=== PATIENT | female | born 1965 | race Caucasian/White ===

== ENCOUNTER 2024-03-21 07:23 | Emergency (ER) | payer BC ==
[~2024-03-21] VITALS: Ht 160 cm; Wt 72.7 kg
[2024-03-21 07:33] VITALS: TEMP 97.7
[2024-03-21] MEDS ORDERED: NS 1,000 ML IV ONE (07:45)
[2024-03-21] MEDS ORDERED: Ondansetron 4 MG/2 ML VIAL IV ONE (07:45)
[2024-03-21] MEDS ORDERED: Morphine 4 MG/ML VIAL IV ONE (07:45)
[2024-03-21 08:39] LABS: BASO # 0.1 K/mm3 (0.0-0.2); BASO % 0.7 % (0.0-2.0); EOS # 0.3 K/mm3 (0.0-0.7); EOS % 2.5 % (0.0-4.0); GRAN % 71.2 % (42.2-75.2); HEMOGLOBIN 15.3 g/dl (12.5-16.0); LYMPH # 1.8 K/mm3 (1.2-3.4); LYMPH % 18.1 % (20.0-51.0); MEAN CELL VOLUME 88 fl (80.0-100.0); MEAN CORPUSCULAR HEMOGLOBIN 29 pg (27-31); MEAN CORPUSCULAR HGB CONC 33 g/dl (33.0-37.0); MEAN PLATELET VOLUME 9.9 fl (7.4-10.4); MONO # 0.7 K/mm3 (0.1-0.6); MONO % 7.2 % (1.7-9.3); PLATELET COUNT 256 K/mm3 (130-400); RED BLOOD COUNT 5.25 M/mm3 (4.10-5.30); REDCELL DISTRIBUTION WIDTH-CV 13.2 % (11.5-14.5)
[2024-03-21 09:14] LABS: ALANINE AMINOTRANSFERASE 27 U/L (0-55); ALBUMIN 3.8 g/dL (3.4-4.8); ALKALINE PHOSPHATASE 109 U/L (40-150); ANION GAP 11 mmol/L (7-16); AST,SGOT 20 U/L (5-34); BILIRUBIN,TOTAL 0.4 mg/dL (0.2-1.2); BLOOD UREA NITROGEN 14 mg/dL (10-20); CALCIUM 9.2 mg/dL (8.4-10.2); CHLORIDE 108 mEq/L (98-107); CREATININE, serum 0.96 mg/dL (0.57-1.11); GLUCOSE 109 mg/dL (70-99); POTASSIUM 3.8 mEq/L (3.5-4.5); SODIUM 141 mEq/L (136-145); TOTAL PROTEIN 6.4 g/dl (6.2-8.1)
[2024-03-21 09:23] LABS: LIPASE < 7 U/L (8-78)
[2024-03-21 09:24] LABS: COLLECTION METHOD CLEAN CATCH
[2024-03-21] MEDS ORDERED: Iohexol 300 - 100 ML VIAL IV ONE (09:27)
[2024-03-21] MEDS ORDERED: NS 100 ML IV SCH (09:28)
[2024-03-21 09:52] LABS: URINE COLOR YELLOW (YELLOW)
[2024-03-21 09:53] LABS: URINE APPEARANCE CLEAR (CLEAR/HAZY); URINE BLOOD Negative (NEGATIVE); URINE GLUCOSE Negative (NEGATIVE); URINE KETONE TRACE (NEGATIVE); URINE NITRATE Negative (NEGATIVE); URINE PROTEIN(semi-quant) Negative (NEGATIVE); URINE UROBILINOGEN 0.2 E.U/dL (0.2-1.0)
[2024-03-21] MEDS ORDERED: PROTONIX 40MG T40 MG PO (10:53)
[2024-03-21] MEDS ORDERED: PERCOCET 325 MG1 TA2 PO (10:53)
[2024-03-21] MEDS ORDERED: ZOFRAN ODT4 MG PO (10:53)
[2024-03-21 11:05] VITALS: BP 129/70; PULSE 63
== END 2024-03-21 11:05 | disposition home or self-care (01) ==
LOC: COL.ER 07:23
PROVIDERS: Personal Emergency Response Attendant
DX: R10.9 Unspecified abdominal pain (principal); R11.10 Vomiting, unspecified
CPT/HCPCS: J2270; J2405; J7030; Q9967